=== PATIENT | female | born 1985 | race Two or more races ===

== ENCOUNTER 2018-09-10 05:25 | Day surgery (SDC) | payer OTHER ==
[~2018-09-10 05:25] MED LIST: ALL DAY ALLERGY10 M3 PO; FLONASE16 GM NASAL; ZITHROMAX TRI-500 MG PO
== END 2018-09-10 12:05 | disposition home or self-care (01) ==
LOC: CIR.AMB 05:25
DX: Z30.2 Encounter for sterilization (principal)

== ENCOUNTER → 2018-09-19 | Emergency (ER) | payer OTHER ==
[~2018-09-19] VITALS: Ht 162.6 cm; Wt 83.9 kg
[~2018-09-19] MED LIST changes: +SINGULAIR 10MG10 MG
== END | disposition home or self-care (01) ==
LOC: ER 13:27
DX: N93.8 Other specified abnormal uterine and vaginal bleeding (principal)